=== PATIENT | female | born 1955 | race Caucasian/White ===

== ENCOUNTER 2022-04-09 10:00 | Emergency (ER) | payer OTHER, SELFPAY ==
--- NOTE | ~2022-04-09 | XR_ITS ---
EXAMINATION: XR KNEE, RIGHT CLINICAL INFORMATION: Pain after fall COMPARISON: None TECHNIQUE: Four views of the right knee. FINDINGS: No fracture or dislocation. No suprapatellar joint effusion. Joint spaces well maintained. No significant degenerative changes. No focal soft tissue swelling of the anterior knee. XR/XR knee RT 4V IMPRESSION: Unremarkable radiographs of the right knee.
--- NOTE | ~2022-04-09 | CT_ITS ---
EXAMINATION: CT BRAIN, CT CERVICAL SPINE AND CT FACIAL BONES WITHOUT CONTRAST. CLINICAL INFORMATION: Fall with head strike. COMPARISON: None TECHNIQUE: 5 mm thin axial and reformatted 2 mm thin sagittal and coronal images of brain were obtained. Axial 3 mm thin and reformatted 1.5 mm thin images of facial bones were obtained. Lastly axial 3 mm thin and reformatted 2 mm thin sagittal and coronal images of cervical spine were obtained. DLP [id number]. FINDINGS: Facial bones: There is mild mucoperiosteal thickening involving bilateral maxillary sinuses. Bilateral frontal, ethmoid and sphenoid sinuses are clear. There is mucoperiosteal thickening involving bilateral mastoid sinuses. The bony sinus portillo are intact. There is mild deviation of nasal septum to the left with a small bony spur. The turbinates are symmetrical. The nasal cavity and nasopharyngeal airway are clear. There is no visible fracture involving the nasal bone on maxillofacial bones. The bony orbits, lamina papyracea and cribriform plate are intact. Bilateral optic globe, optic nerve and the intraorbital and extraconal soft tissues are normal. Brain: There is no acute intra-axial, extra-axial bleed, masses or midline shift. There is no acute infarction evolution. There is no edema. The nesbitt to white matter differentiation is maintained normal. The lateral ventricles are symmetrical in size and configuration without enlargement. Bone windows reveal 1.4 cm lucency left parietal bone, indeterminate. No calvarial fracture seen. Cervical spine: There is exaggerated cervical lordosis. The vertebral heights and alignment is normal. There is loss of disc height with vacuum disc phenomena at all disc levels. The craniovertebral junction and the C1-C2 alignment is normal. There is bilateral C2-C3, C3-C4, C4-C5 facet joint arthropathy and hypertrophy. No visible acute fracture, dislocation or subluxation seen. The prevertebral and paravertebral soft tissues are normal. CT/CT cervical spine wo IV con IMPRESSION: 1. No acute intracranial process seen. 2. There is no maxillofacial, nasal or mandibular fracture. 3. 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 4. Exaggerated cervical lordosis without any visible fracture, dislocation or subluxation. There are degenerative disc changes and facet joint arthropathy as described above.
[2022-04-09 10:06] VITALS: BP 169/64; BP 190/98; PULSE 86; PULSE 92; RESP 16; TEMP 36.6; O2SAT 96; O2SAT 98; BMI 27.1
--- NOTE | 2022-04-09 10:10 | ED_ITS ---
HPI - Fall General Chief Complaint: Fall Stated Complaint: FALL,-LOC Source: patient and EMS Mode of arrival: EMS Limitations: no limitations History of Present Illness HPI Narrative: 67-year-old female with history of hypertension presents to the ER for evaluation of a fall. Patient reports she tripped over the dog crate this morning, hitting the right side of her face and her right knee on the cement floor. She denies any loss of consciousness and she is not on anticoagulation. We have she was able to get up on her own and ambulate on her right leg. She reports some tenderness with palpation. He she sustained an abrasion under her right eye and has tenderness of the right maxillary and inferior orbital area. She denies any pain with eye movement. She has a mild headache but feels like a sinus headache and not of throbbing type headache. No other injuries. MD complaint: fall Onset (ago): minute(s) Fall from: standing Fall witnessed: no Place fall occurred: home Loss of consciousness: none Prolonged down time: no Symptoms prior to fall: none Context: tripped/slipped Location of injury: face Location of injury - extremities: right: knee Severity: mild Quality: aching Associated symptoms (after fall): headache Related Data Allergies Allergy/AdvReac Type Severity Reaction Status Date / Time No Known Allergies Allergy Verified 04/09/22 10:09 Review of Systems Review of Systems: Constitutional: No Fever, No Chills ENT/Mouth: No sore throat, No Rhinorrhea, +sinus pressure Eyes: No Eye Pain, + Swelling, + Redness Cardiovascular: No Chest Pain, No SOB, No Orthopnea, No Edema Respiratory: No Cough, No Sputum, No Wheezing, No dyspnea Gastrointestinal: No Nausea, No Vomiting, No abdominal Pain Musculoskeletal: +joint pain, No Myalgias Skin: +Skin Lesions (abrasion), No rash Neuro: No Weakness, No Numbness, No Dizziness, + Headache Heme/Lymph: No Bruising, No Lymphadenopathy PMFSH Social History Social History Advance Directives: No Advance Directives Information Provided: Yes Physical Exam Vital Signs: Vital Signs: Last Vital Signs Temp 98 F 04/09/22 11:09 Pulse 75 04/09/22 11:09 Resp 16 04/09/22 11:09 BP 146/70 H 04/09/22 11:09 Pulse Ox 98 04/09/22 11:09 O2 Del Method 04/09/22 11:09 BMI result Body Mass Index 27.1 Appearance: Alert. Oriented X3. No acute distress. Head/face: Normocephalic. No palpable hematoma or tenderness of the scalp. Inferior aspect of right eye with a 1 cm superficial abrasion over the right upper maxillary area. Eyes: Pupils equal, round and reactive to light. EOMI. ENT: Pharynx normal. Normal visualization of the tympanic membranes bilaterally. Neck: Normal inspection. Neck supple. No midline tenderness. Normal range of motion. CVS: Normal heart rate and rhythm. Pulses normal. Respiratory: No respiratory distress. Breath sounds normal. Abdomen: Soft and nontender. +BS x4 Skin: Skin warm and dry. Normal skin color. Normal skin turgor. No rashes. Extremities: No lower extremity edema. Atraumatic x4, normal range of motion. Neuro: Oriented X 3. No motor deficit. No sensory deficit. Course Course Course Narrative: 67-year-old female presents to the ER for evaluation of a mechanical fall, resulting in her falling and injuring the right side of her face and her right knee. Doubt any orbital fracture but will get CT scans of her head, facial bone s and neck given her age. Will get x-rays of the knee. She is ambulatory. Reevaluation(s) Reevaluation #1: CT scans of head, neck, facial bones as well as the x-ray of her knee are unremarkable. No rib traumatic injuries. Comfortable discharge home with supportive care and outpatient follow up p.r.n.. Patient agrees with plan. Daughter will pick her up. All questions were answered. Medications Administered Discontinued Medications Generic Name Dose Route Start Last Admin Trade Name Effie PRN Reason Stop Dose Admin Acetaminophen 975 mg 04/09/22 10:09 04/09/22 10:16 Acetaminophen 325 Mg Tablet PO 04/09/22 10:10 975 mg ONCE ONE Administration Discharge Plan Discharge Clinical Impression: Contusion of face, Contusion of knee Patient Disposition: Home, Self-Care Instructions: Contusion in Adults (ED), Fall Prevention (ED) Additional Instructions: Your imaging today did not show any traumatic injuries. Recommend rest, take plenty of Motrin or Tylenol as needed for body aches and pains. Follow-up with your doctor as needed.
[2022-04-09 10:11] VITALS: BP 169/64; RESP 14; O2SAT 98
[2022-04-09] MEDS: Acetaminophen 325 MG TABLET 975 MG PO (10:16)
[2022-04-09 11:09] VITALS: BP 146/70; PULSE 75; RESP 16; TEMP 36.6; O2SAT 98
== END 2022-04-09 11:56 | disposition home or self-care (01) ==
PROVIDERS: Emergency Provider Emergency Medicine
DX: S00.11XA Contusion of right eyelid and periocular area, initial encounter (principal); S80.01XA Contusion of right knee, initial encounter; W01.0XXA Fall on same level from slipping, tripping and stumbling without subsequent striking against object, initial encounter; Y93.9 Activity, unspecified; Y92.019 Unspecified place in single-family (private) house as the place of occurrence of the external cause; Y99.9 Unspecified external cause status
CPT/HCPCS: 70450; 70486; 72125; 73564; 99284